=== PATIENT | female | born 1930 | race Caucasian/White ===

== ENCOUNTER 2020-10-14 10:29 | Inpatient (IN) | payer OTHER ==
[~2020-10-14] VITALS: Ht 157.5 cm; Wt 61.5 kg
[2020-10-14 10:52] VITALS: BP 126/64
[2020-10-14] MEDS ORDERED: PROAIR HFA8.5 GM INH (16:44)
[2020-10-14] MEDS ORDERED: TELMISARTAN-HC1 EAC2 PO (16:45)
[2020-10-14] MEDS ORDERED: ADVIL200 M3 PO (16:46)
[2020-10-14] MEDS ORDERED: ULTRAM50 MG PO (16:46)
[2020-10-14 18:36] LABS: CALCIUM 9.7 mg/dL (8.5-10.1); POTASSIUM 3.2 mmol/L (3.5-5.1)
[2020-10-14 18:49] VITALS: BP 159/74
[2020-10-14 19:43] VITALS: BP 134/67
[2020-10-14 20:05] VITALS: BP 136/61
[2020-10-15] VITALS (32 sets, daily range): BP systolic 79–167; BP diastolic 31–102
--- NOTE | 2020-10-15 04:22 | NUR ---
PT WAS ADMITTED TO THE UNIT FROM THE ER IN A STABLE CONDITION.PT'S BACK PAIN MANAGED WITH MED.ADMISSION HX EDUCATION AND ASSESSMENT COMPLETED.PT'S SODIUM AND POTASSIUM LOW,FINISHER OPERATOR ON DUTY NOTIFIED,ORDER NOTED.PT UP WITH ASSIST X1 TO BSC.PT STATED THAT SHE WOULD PREFER A BEDPAN.PT RESTING COMFORTABLY ON HER BED.CALL LIGHT WITHIN REACH.
[2020-10-15 13:37] LABS: HEMATOCRIT 31.9 % (37.0-47.0); HEMOGLOBIN 10.7 gm/dL (12.0-15.0); MCH 31.9 pg (26.0-34.0); MCHC 33.6 g/dL (28.0-37.0); MCV 94.8 fL (80.0-100.0); RBC 3.37 mil/uL (4.20-5.00); RDW 14.3 % (10.5-14.5); WBC 11.2 thou/uL (4.0-11.0)
[2020-10-15 13:42] LABS: CALCIUM 9.2 mg/dL (8.5-10.1); CREATININE 1.8 mg/dL (0.6-1.0); POTASSIUM 4.3 mmol/L (3.5-5.1)
--- NOTE | 2020-10-15 14:13 | NUR ---
Pt had large bloody stool with hyotension > COAL AND ASH SUPERVISOR activate > see flowsheet
--- NOTE | 2020-10-15 14:25 | NUR ---
Assumed care of pt. at 0700. Pt. was calm and cooperative but complained of pain in lower back. Pain medications given. Pt. complained that she needed to have a BM. TITLE SEARCHER Vashti reported large BM and request myself and the charge nurse Jane look at it. Noted large blood tinged BM. Collected stool sample. Vitals gathered. Decrease in BP and O2 Sat noted with vitals. Physician notified, orders given. Another set of vitals revealed second decrease in BP and O2 Sat. Rapid called. Dr. Boss ordered pt. be transfered to ICU. Pt. transfered with all belongings.
--- NOTE | 2020-10-15 15:48 | NUR ---
CONSULTED TO PLACE A IV FOR A PATIENT TRANSFERED TO ICU. DISCUSSED MIDLINE PLACEMENT WITH THE PATIENT - BENIFITS AND RISK OF DVT AND INFECTION AND SHE AGREED TO PLACEMENT. THE LEFT UPPER ARM BASILIC WAS WIDLEY PATENT. A #4F MIDLINE WAS PLACED PER HOSPITAL POLICY. LINE WAS TRIMMED TO 12CM AND ADVANCED WITHOUT DIFFICULTY.
[2020-10-15 17:06] LABS: HEMOGLOBIN 9.1 gm/dL (12.0-15.0); MCH 32.3 pg (26.0-34.0); MCHC 33.8 g/dL (28.0-37.0); MCV 95.3 fL (80.0-100.0); RBC 2.83 mil/uL (4.20-5.00); RDW 14.1 % (10.5-14.5); WBC 12.6 thou/uL (4.0-11.0)
--- NOTE | 2020-10-15 23:53 | NUR ---
ASSUMED CARE OF PATIENT AT 1900. ONE MODERATE STOOL, MAROON TINGED. INCONTINENT OF URINE. [address] FELICIANO, UNSUCCESSFUL. PUREWICK CATHETER PLACED. MORPHINE GIVEN TO CONTROL PAIN. NORA, PATIENTS DAUGHTER CALLED AT 2029. UPDATE GIVEN. SHE STATES SHE WILL BE HERE ARE 9 AM. NO OTHER CONCERNS AT THIS TIME. WILL CONTINUE TO MONITOR.
[2020-10-16] VITALS (29 sets, daily range): BP systolic 97–135; BP diastolic 34–67
[2020-10-16 04:33] LABS: APTT 22.5 Seconds (24.5-32.8); INR 1.1; PROTIME 10.9 Seconds (9.3-11.4)
[2020-10-16 04:36] LABS: HEMATOCRIT 26.1 % (37.0-47.0); HEMOGLOBIN 8.9 gm/dL (12.0-15.0); MCH 32.3 pg (26.0-34.0); MCHC 33.9 g/dL (28.0-37.0); MCV 95.1 fL (80.0-100.0); RBC 2.75 mil/uL (4.20-5.00); RDW 14.5 % (10.5-14.5); WBC 9.3 thou/uL (4.0-11.0)
[2020-10-16 04:46] LABS: ALBUMIN 2.4 g/dL (3.4-5.0); CALCIUM 8.4 mg/dL (8.5-10.1); CREATININE 1.1 mg/dL (0.6-1.0); PHOSPHORUS 2.3 mg/dL (2.5-4.9); POTASSIUM 3.8 mmol/L (3.5-5.1)
[2020-10-16 20:49] LABS: HEMATOCRIT 25.1 % (37.0-47.0); HEMOGLOBIN 8.5 gm/dL (12.0-15.0)
--- NOTE | 2020-10-16 21:02 | NUR ---
0730-SLEEPING,ALLOWED TO SLEEP.--VW 0800-G.I. LB HERE.--VW 0830-TO O.R. FOR EGD VIA BED FULLY MONITORED W G.I. CREW.--VW 1110-BACK FROM EGD.LYING ON BACK,MOUTH WIDE OPEN,RESP EVEN,REGULAR.GOOD COLOR,W&D.--VW 1200-DTR NORA AT ICU DOOR. BROTHER AMINATA HAD BEEN LISTED & SAW PT RICHI. VISITOR ON 10/15. EXPLAINED TO DTR THERE COULD ONLY BE 1 VISITOR FOR HOSPITILIZATION,SHE WAS OK W CURRENT RULES,STATING SHE UNDERSTOOD.--VW 1600-SON AMINATA AT BEDSIDE,UPDATED ON POC.--VW 1730-PUREWIC NOT IN PLACE,PT INCONT OF URINE.PARTIAL BATH,LINED CHANGE DONE. PT LOG ROLLED,HAS BEEN KEPT FLAT.TAKING LQDS W/O PROBLEMS (BED IN REV.T.SINAI).PUREWIC REPOSITIONED.--VW
[2020-10-17] VITALS (12 sets, daily range): BP systolic 114–153; BP diastolic 45–68
--- NOTE | 2020-10-17 00:41 | NUR ---
ASSUMED PT CARE AT 1900. VSS PT HOWEVER GETS SINUS TACHY WITH PAIN. PT RATES BACK PAIN AT 20/10. IV MORPHINE GIVEN. INITIAL ASSESSMENT DONE AND CHARTED. SPOKE TO LILLIAM JACKSON AT 2012 ABOUT PT STATUS CHANGE, GOT AN ORDER TO DOWNGRADE PT TO MST STATUS, SANDRA WHITTINGTON SUPERVISIOR CALLED TO GIVE ME A 2N ROOM NUMBER FOR PT. REPORT CALLED TO JAMIE MICHELE AT 0051. PT TO BE RANSFERED TO RM 208. PT'S SON WHITNEY CALLED AT 0054 LEFT A MESSAGE ABOUT PT ROOM CHANGE.
[2020-10-17 04:31] LABS: HEMATOCRIT 24.3 % (37.0-47.0); HEMOGLOBIN 8.2 gm/dL (12.0-15.0); MCH 32.6 pg (26.0-34.0); MCHC 33.7 g/dL (28.0-37.0); MCV 96.6 fL (80.0-100.0); RBC 2.51 mil/uL (4.20-5.00); RDW 14.3 % (10.5-14.5); WBC 7.4 thou/uL (4.0-11.0)
--- NOTE | 2020-10-17 04:35 | NUR ---
Pt was transfer from ICU. Pt complains of pain. Pain med administered to pt. Pain noted to be uncontrolled. Pt is stabloe ad laying in bed. Fall precaution in pt. Scheduled meds administered. Continue to monitor. No further needs at this time.
--- NOTE | 2020-10-17 15:19 | NUR ---
ASSUMED CARE AT SHIFT CHANGE, ASSESSMENT DOCUMENTED AND VSS. PATIENT C/O PAIN TO MID BACK AND LOWER BACK MEDICATED INDICATED. POST PROCEDURE VSS AND REPOSTIONED AND MEDICATED FOR PAIN. SON AT BEDSIDE AND WHITNEY WAS UPDATED WITH PATIENT PROGRESS. AND WILL CONTINUE WITH POC.
--- NOTE | 2020-10-17 17:22 | NUR ---
Met with patient and son at bedside. Patient resides in independent living at [facility]. Patient admits with lumbar compression fx. Patient rec procedure today. Therapy evals ordered but not evaled at this time. patient has a walker, wc at home. She reports independent with adls area captain. She rec meals at complex but no nursing or bath aide. Son Marcio reports inital plan to dc to his home with possible home health care. Family does NOT want snf. if rehab needed agreeable to 5N eval. Casemgt following.
--- NOTE | 2020-10-17 19:04 | NUR ---
ASSUMED CARE PT APPROX 1600. PT AWAKE AND ORIENTED.VSS. DENIES PAIN. O2 SATS WNL ON RA. PT TOLERATING DIET WELL. SON AT BEDSIDE THROUGHOUT SHIFT. PROTONIX GTT CONTINUES. PT REPOSITIONED TOLERATED. SON UPDATED ON POC. PT CURRENTLY SITTING UP IN BED FINISHING SOME DINNER. CONTINUING TO MONITOR AND FOLLOW POC. WILL PASS ON REPORT TO MIKA MICHELE.
--- NOTE | 2020-10-18 03:38 | NUR ---
PT CARE ASSUMED WITH PT IN BED WATCHING TV AT 1900.PT IS A/O X4 AND FORGETFUL.PT IS ON CLEAR LIQUID DIET.PT C/O PAIN AND PAIN MANAGED WITH HYDROCODONE AND MORPHINE WITH PARTIAL RELIEF.PT IS ON PROTONIX GTT.PT HAS SHAUNA SINGLE LUMEN MIDLINE.PT HAS EXTERNAL CATHETER IN PLACE.PT REFUSED REPOSITIONING AND C/O PAIN WHEN TRYING TO REPOSITION.WILL CONTINUE TO MONITOR PER POC
[2020-10-18 03:55] VITALS: BP 141/42
[2020-10-18 08:00] VITALS: BP 149/57
[2020-10-18 12:05] VITALS: BP 140/64
--- NOTE | 2020-10-18 12:39 | NUR ---
pt c/o upper abdominal pain today, given both prn pain medications so far without much relief. spoke with adelina from gi. she states to give the pt miralax and a suppository and see if having a bowel movement will help
--- NOTE | 2020-10-18 14:21 | NUR ---
Spoke with son Marcio plan for patient to dc to his home. he wants HH and no preferece for an agency. Address [id number] [id number]. Son reports approx 15 steps to bathroom in same room. They have a walker for home. Casemgt following. Therapies on hold and reordered, therapy to see in am.
[2020-10-18 16:13] VITALS: BP 154/74
[2020-10-18 19:55] VITALS: BP 130/52
--- NOTE | 2020-10-19 03:36 | NUR ---
Assumed pt care at 1900. Pt is alert and oriented, but is forgetful. No sign of distress noted in pt. Pt continues to verbalize pain. Pt is laying in bed resting comfortably. Vital sign stabale. Fall precaution in place. Scheduled meds administered to pt. No acute events overnight. Conitnue to monitor pt. No further needs at this time.
[2020-10-19 05:15] VITALS: BP 148/65
[2020-10-19 05:57] LABS: HEMATOCRIT 21.7 % (37.0-47.0); HEMOGLOBIN 7.5 gm/dL (12.0-15.0); MCH 32.9 pg (26.0-34.0); MCHC 34.4 g/dL (28.0-37.0); MCV 95.7 fL (80.0-100.0); RBC 2.27 mil/uL (4.20-5.00); RDW 14.4 % (10.5-14.5); WBC 7.7 thou/uL (4.0-11.0)
[2020-10-19 05:58] LABS: CALCIUM 8.4 mg/dL (8.5-10.1); CREATININE 0.7 mg/dL (0.6-1.0); POTASSIUM 3.1 mmol/L (3.5-5.1)
[2020-10-19 08:07] VITALS: BP 161/74
--- NOTE | 2020-10-19 11:20 | NUR ---
FAXED REFERRAL TO [facility] SPOKE WITH NATA IN INTAKE SHE RECEIVED REFERRAL AND WILL ACCEPT AT [place].
--- NOTE | 2020-10-19 13:13 | PATH ---
[facility] [address] [place] [address] PATHOLOGY RPT PROCEDURE Name: FABRICIO HARRIS Room #: 208-P ADM IN M.R.#: [id number] Admission: 10/14/20 Date of : [birth year] Discharge: Report #: [id number] Path Case #: [id number] [facility] Accession Number: [id number] . 01 Material submitted: . stomach - BIOPSY OF ANTRUM TO R/O H. PYLORI . 01 Clinical history: . BLEED, LUMBAR COMPRESSION FX . 02 Diagnosis: Antrum, biopsy: - Chronic inactive gastritis. - An H. pylori immunostain is negative (A1; appropriate control). (MAP/db; 10/19/20) LBQ 10/19/2020 1035 Local . 02 Electronically signed: . Jayme Newton MD, Pathologist NPI- [id number] . 01 Gross description: . The specimen is received in formalin, labeled "Fabricio Harris, BX of antrum" and consists of 2 fragments of pink tissue measuring 0.3 x 0.2 cm and 0.4 x 0.2 cm which are entirely submitted in A1. (SDY; 10/18/2020) SYU/SYU 10/18/2020 1729 Local . 02 Pathologist provided ICD-10: K29.50 . 02 CPT . 901023, [id number] Specimen Comment: A courtesy copy of this report has been sent to [phone], [phone] Specimen Comment: 1972 Specimen Comment: Report sent to / DR CUEVAS Performed at: [address], [place], [place] [id number] MD Kingsley King MD Phone: [phone] Performed at: [address] [id number] MD Elizabeth Holliday MD Phone: [phone]
--- NOTE | 2020-10-19 18:15 | NUR ---
Patient accepted to 5N. Sp with son Marcio family all in agreement with 5N. Updated 5N and phys
[2020-10-19 19:50] VITALS: BP 105/55
--- NOTE | 2020-10-20 03:43 | NUR ---
Assumed pt care at 1900. Pt is alert and oriented but forgetful. No sign of distress noted in pt. Denies pain for now. Pt is laying in bed, resting comfortably. Fall precaution in place. Assessment completed and documented. Scheduled meds administered to pt. NO acute events overnight. Continue to monitor. Pending discharge. No further needs at this time.
[2020-10-20 04:39] VITALS: BP 140/59
[2020-10-20 07:17] VITALS: BP 134/62
[2020-10-20 07:19] LABS: HEMOGLOBIN 7.6 gm/dL (12.0-15.0); MCH 32.9 pg (26.0-34.0); MCHC 34.4 g/dL (28.0-37.0); MCV 95.6 fL (80.0-100.0); RBC 2.3 mil/uL (4.20-5.00); RDW 14.4 % (10.5-14.5); WBC 5.8 thou/uL (4.0-11.0)
[2020-10-20 07:43] LABS: CALCIUM 8.6 mg/dL (8.5-10.1); CREATININE 0.6 mg/dL (0.6-1.0); MAGNESIUM 1.5 mg/dL (1.8-2.4); POTASSIUM 3.2 mmol/L (3.5-5.1)
[2020-10-20] MEDS ORDERED: COZAAR 50 MG TA50 M1 PO (08:13)
[2020-10-20] MEDS ORDERED: NORVASC5 MG PO (08:13)
[2020-10-20] MEDS ORDERED: CYCLOBENZAPRINE5 MG PO (08:13)
[2020-10-20] MEDS ORDERED: HYDROCODON-ACE1 EAC7 PO (08:14)
[2020-10-20] MEDS ORDERED: AMBIEN 5 MG TABL5 M1 PO (08:14)
[2020-10-20] MEDS ORDERED: LIDOPATCH1 EACH TRANSDERM (08:15)
[2020-10-20] MEDS ORDERED: PROTONIX40 M2 PO (08:15)
[2020-10-20] MEDS ORDERED: CARAFATE 11 GM/10 M1 PO (08:15)
[2020-10-20 11:17] VITALS: BP 149/74
[2020-10-20 15:14] VITALS: BP 153/73
--- NOTE | 2020-10-20 17:27 | NUR ---
ASSUMED CARE OF PT AT SHIFT. ASSESSMENT CHARTED. MEDS GIVEN PER JAN. PT A&OX4, C/O PAIN TREATED WITH PO MEDS WITH PARTIAL RELIEF. NO SIGNS OF BLEEDING, HGB IS STABLE. PLAN TO MOVE TO 5N THIS EVENING AFTER SHIFT CHANGE. WILL CONTINUE TO MONITOR AND FOLLOW POC.
== END 2020-10-20 18:30 | DRG 515 ==
LOC: ER 10:29 → ICU 18:29 → EROBS 18:29 → 2N 18:29 → 4S 19:34 → ICU 10-15 14:17 → 2N 10-17 01:14
PROVIDERS: Hospitalist; Internal Medicine; Nurse Practitioner Family; ADMIT Hospitalist; ATTEND Hospitalist
DX: M48.54XA Collapsed vertebra, not elsewhere classified, thoracic region, initial encounter for fracture (principal); K26.4 Chronic or unspecified duodenal ulcer with hemorrhage; K25.4 Chronic or unspecified gastric ulcer with hemorrhage; E87.1 Hypo-osmolality and hyponatremia; D62 Acute posthemorrhagic anemia; E46 Unspecified protein-calorie malnutrition; K80.20 Calculus of gallbladder without cholecystitis without obstruction; I10 Essential (primary) hypertension; M47.896 Other spondylosis, lumbar region; M12.88 Other specific arthropathies, not elsewhere classified, other specified site; M40.294 Other kyphosis, thoracic region; E87.6 Hypokalemia; K59.00 Constipation, unspecified; Z20.828 Contact with and (suspected) exposure to other viral communicable diseases; M85.88 Other specified disorders of bone density and structure, other site; I95.9 Hypotension, unspecified; Z68.24 Body mass index [BMI] 24.0-24.9, adult; Z79.899 Other long term (current) drug therapy; Z79.1 Long term (current) use of non-steroidal anti-inflammatories (NSAID)
CPT/HCPCS: 10081; 10195; 10196; 10203; 27000; 62110; 62900

== ENCOUNTER 2020-10-19 17:08 | Inpatient (IN) | payer OTHER ==
[~2020-10-19] VITALS: Ht 160 cm; Wt 64.4 kg
[~2020-10-19 17:08] MED LIST: ADVIL200 M3 PO; PROAIR HFA8.5 GM INH; TELMISARTAN-HC1 EAC2 PO; ULTRAM50 MG PO
[2020-10-20] MEDS ORDERED: COZAAR 50 MG TA50 M1 PO (08:13)
[2020-10-20] MEDS ORDERED: CYCLOBENZAPRINE5 MG PO (08:13)
[2020-10-20] MEDS ORDERED: NORVASC5 MG PO (08:13)
[2020-10-20] MEDS ORDERED: HYDROCODON-ACE1 EAC7 PO (08:14)
[2020-10-20] MEDS ORDERED: AMBIEN 5 MG TABL5 M1 PO (08:14)
[2020-10-20] MEDS ORDERED: CARAFATE 11 GM/10 M1 PO (08:15)
[2020-10-20] MEDS ORDERED: LIDOPATCH1 EACH TRANSDERM (08:15)
[2020-10-20] MEDS ORDERED: PROTONIX40 M2 PO (08:15)
--- NOTE | 2020-10-20 20:10 | NUR ---
ASSUMED CARE OF PT AT 1830 WHEN PT BROUGHT TO UNIT BY PREVIOUS UNIT NURSING STAFF. RECEIVED REPORT FROM NURSE PRIOR TO TRANSFER. PER PRIOR NURSE PT HAS BLADDER SCAN INDICATING 1000ML RETENTION, ORDERS OBTAINED BY PRIOR NURSE TO STRAIGHT CATH AND OBTAIN UA. ON ARRIVING TO UNIT, PT CRYING AND YELLING THAT HER STOMACH WAS HURTING, PT STATED THAT STRAIGHT CATH HAD NOT BEEN PLACED AND ATTEMTED X2 TO PLACE CATHETER IMMEDIATELY, BOTH ATTEMPTS UNSUCCESSFUL. PT ALLOWED TO REST AND WAS HAVING SOME INCONTINENT URINE OUTOUT AT THAT TIME, REPORTED THAT PAIN WAS BEGINING TO DECREASE. ONCOMING NURSE TO ATTEMPT CATHETER IF RESIDUAL CONTINUES. SON AT THE BEDSIDE AT THIS TIME. FALL FALL PRECAUTIONS IN PLACE AND NURSING WILL CONTINUE TO MONIOTR.
[2020-10-20 22:26] LABS: URINE BILIRUBIN NEGATIVE (Negative); URINE BLOOD TRACE (Negative); URINE CLARITY CLEAR; URINE COLOR YELLOW; URINE GLUCOSE-RANDOM* NEGATIVE (Negative); URINE KETONES NEGATIVE (Negative); URINE LEUKOCYTES-REFLEX NEGATIVE (Negative); URINE NITRITE-REFLEX NEGATIVE (Negative); URINE PROTEIN (DIPSTICK) NEGATIVE (Negative); URINE UROBILINOGEN 0.2 E.U./dl (0.2-1.0)
--- NOTE | 2020-10-21 03:50 | NUR ---
assumed care approx 1900 evening 10/20. pt lying in bed at change of shift c/o abdominal and back pain. pt restless, anxious, and somewhat confused. bladder scan showed >1000ml urine. cathed with lanza cath x1 with some difficulty however after tubing inserted long way urine began to flow. 1200cc clear, yellow urine obtained and ua sent to lab. pt also given pain pill as ordered. pt stated she was starting to feel somewhat better. pt given sleep med and sleeping off and on tonight. pt impulsive once so far tonight climbing out of bed and rearranging her bed sheets. pt now back in bed, lab here. call light in reach. bed alarm on. will continue to monitor.
[2020-10-21 04:52] LABS: HEMATOCRIT 22.6 % (37.0-47.0); HEMOGLOBIN 7.6 gm/dL (12.0-15.0); MCH 32.8 pg (26.0-34.0); MCHC 33.7 g/dL (28.0-37.0); MCV 97.3 fL (80.0-100.0); RBC 2.32 mil/uL (4.20-5.00); WBC 5.8 thou/uL (4.0-11.0)
[2020-10-21 06:54] LABS: FOLIC ACID 27.1 ng/mL (8.6-58.9)
[2020-10-21 08:00] VITALS: BP 150/83
[2020-10-21 09:21] LABS: CALCIUM 8.5 mg/dL (8.5-10.1); CREATININE 0.5 mg/dL (0.6-1.0); POTASSIUM 4.4 mmol/L (3.5-5.1)
[2020-10-21 09:23] VITALS: BP 147/71
--- NOTE | 2020-10-21 18:35 | NUR ---
Alert to person and place. Calm and cooperative without s/o distress. Breath sounds clear. Reg HR auscultated. Color pale pink with brisk capillary refill and palpable peripheral pulses. Clear yellow urine per lanza to dependent drainage. Active bowel sounds over soft rounded abdomen. Weak with therapy, placed back in bed. Took AM meds without difficulty with H2O. Coughed twice with 1100 med, speech therapy aware, changed to nectar thick fluids. Son here visiting, states both him and pt want pt. to be a DNR status. LILLIAM Ashby notified, status changed in computer. Son also concerned about pain management. Pt. states pain level is a 2-3. Tylenol given per PRN order. Pt. lying quietly in bed without s/o distress, some discomfort when turning and repositioning.
[2020-10-21 20:00] VITALS: BP 126/71
--- NOTE | 2020-10-22 02:16 | NUR ---
assumed care approx 1900 evening 10/21. pt lying in bed with head of bed elevated at change of shift. lanza to dd with clear, yellow urine to bag. pt forgetful and pleasantly confused at times. pt took hs meds with applesauce tolerating well. pt appears to be sleeping soundly with hourly rounding. bed alarm on and call light in reach. will continue to monitor.
--- NOTE | 2020-10-22 08:09 | NUR ---
ASSUMED CARE AT 0700. PATIENT IS ALERT TO PERSON. SOME CONFUSION. QUINONES'S, READERS' ADVISORY SERVICE LIBRARIAN ARE EQUAL. LUNGS ARE DEMINISHED. ABD IS SOFT WITH BSX4. PATIENT HAS FELICIANO TO DD, DRAINING VAL COLORED URINE. PATIENT HAS MIDLINE IN HER RIGHT UPPER ARM. FALL AND SAFETY PROTOCOLS IN PLACE. C/O BACK PAIN. MEDICATED WITH PRN PAIN MED. CONTINUES TO PROGRESS TOWARDS D/C GOALS. WILL CONTINUE TO MONITER.
[2020-10-22 19:49] VITALS: BP 139/76
--- NOTE | 2020-10-22 22:26 | NUR ---
PT ASSESSMENT COMPLETED AND VSS. MEDS GIVEN ORDERED AND WELL TOLERATED. FALL PRECAUTIONS IN PLACE. FELICIANO DRAINING MODERATE AMOUNT OF YELLOW URINE. C/O BACK PAIN. PRN MEDICATION HELPFUL. ASST WITH REPOSITION FOR COMFORT. RESTING WELL AT THIS TIME. WILL CONTINUE TO MONITOR FREQUENTLY.
[2020-10-23 08:16] VITALS: BP 126/57
[2020-10-23 19:35] VITALS: BP 149/77
--- NOTE | 2020-10-23 20:01 | NUR ---
ASSUMED CARE OF PT AT 0715. PT IS A&O TO SELF & SITUATION. IS FORGETFUL. REPORTS PAIN IN BACK THAT IS BEING MANAGED WITH MEDS & OTHER THERAPUETIC TECHNIQUES. IS ON ROOM AIR. IS STABLE. IS UP WITH 1 ASSIST, GB, WALKER TO CHAIR. FALL PRECAUTIONS & HOURLY ROUNDING CONTINUED THIS SHIFT. LABS & VITALS REVIEWED. PT IS CURRENTLY IN BED RESTING. CALL LIGHT WITHIN REACH. IS TURNED Q2H. FELICIANO IN PLACE. WILL CONTINUE TO MONITOR.
--- NOTE | 2020-10-24 00:36 | NUR ---
PT ASSESSMENT COMPLETED AND VSS. MEDS GIVEN ORDERED AND WELL TOLERATED. FALL PRECAUTIONS IN PLACE. HELPED PT WITH NECTOR THICK LIQUIDS AND MOUTH SPONGES. FORGETFUL. PRN PAIN MEDICATION HELPFUL FOR BACK PAIN AND SPASMS. PT VERY ANXIOUS AT TIMES DURING THE NIGHT. SAT WITH PT SEVERAL TIMES AND TALKED ABOUT HER LIFE. THIS SEEMED TO HELP PT RELAX. PROVIDED MUCH EMOTIONAL SUPPORT. SLEEPING AT THIS TIME. WILL CONTINUE TO MONITOR FREQUENTLY.
[2020-10-24 05:20] LABS: HEMATOCRIT 23.6 % (37.0-47.0); HEMOGLOBIN 7.8 gm/dL (12.0-15.0); MCV 96.9 fL (80.0-100.0); RBC 2.44 mil/uL (4.20-5.00); WBC 4.7 thou/uL (4.0-11.0)
[2020-10-24 05:36] LABS: CALCIUM 8.6 mg/dL (8.5-10.1); CREATININE 0.8 mg/dL (0.6-1.0); MAGNESIUM 1.7 mg/dL (1.8-2.4); POTASSIUM 3.2 mmol/L (3.5-5.1)
[2020-10-24 08:50] VITALS: BP 126/57
--- NOTE | 2020-10-24 09:14 | NUR ---
chart review. zenia tried to visit with renato at bedside, she was sitting in recliner chair. cm cont to wear face mask and shield during visit. she was complaining that her right side back hurt. intro to cm, dcp and team meeting. cm going to let her rest. noted in chart she lives a [facility]. has walker and possible wheel chair. had stair inside to get to the bathroom, approx 15. tamar cruz in past. will cont following as needed for dc needs.
--- NOTE | 2020-10-24 10:30 | NUR ---
ASSUMED CARE AT 0700. PT IS ALERT AND ORIENTATED X 2-3, FORGETFUL. WAS VERY ANXIOUS THIS MORNING DUE TO PAIN IN HER BACK. RATES PAIN 10/10. SHE WAS SENT FOR SWALLOW STUDY WITH VSS. RECEIVED CALL THAT "PT FEELS LIKE PASSING OUT", ANOTHER RN WENT DOWN TO RADIOLOGY TO ASSESS PT AND NOTED PT WAS MORE ANXIOUS DUE TO PAIN AND BP WAS STABLE WITH NO SIGNS OF HYPOTENSION. PT CAME BACK WITH ORDERS TO START THIN LIQUID. PT ATE 10% OF HER MEAL AND THROUGHT OUT THE DAY NOTED HAVING INTERMITTENT COUGHING WITH EATING. ST NOTIFIED, WILL NOT TRANSITION TO THIN LIQUID YET AND CONT WITH NECTAR THICK AND POSSIBLE FOR CXR TOMORROW IF OK WITH HOSPITALIST. PAIN IS BETTER MANAGED THROUGH OUT THE DAY. PARTICIPATING WITH THERAPY. WILL CONT TO MONITOR.
--- NOTE | 2020-10-24 16:46 | NUR ---
FAXED CLINICAL UPDATE TO [facility] SPOKE WITH DG IN ADM SHE RECEIVED UPDATE AND IF PT NEEDS HH AT DC THEY CAN ACCEPT.
--- NOTE | 2020-10-24 16:50 | NUR ---
FAXED CLINICAL UPDATE TO [facility] SPOKE WITH DG IN ADM IF PT NEEDS HH AT DC FROM REHAB THEY CAN ACCEPT.
[2020-10-24 19:26] VITALS: BP 153/76
--- NOTE | 2020-10-25 04:29 | NUR ---
assumed care approx 1900 evening 10/24. pt lying in bed with head of bed elevated. lanza to dd with yellow urine to bag. pt appears to be sleeping soundly waking up periodically thru night. pt given pain med as ordered. bed alarm on and call light in reach. will continue to monitor.
--- NOTE | 2020-10-25 07:51 | NUR ---
ASSUMED CARE AT 0700. PATIENT IS ALERT AND ORIENTED TO PERSON. PATIENT QUINONES'S, AND IS UP WITH ONE STAFF AND GAIT BELT WITH WALKER. PATIENT LUNGS ARE CLEAR AND DEMINISHED. ABD IS SOFT WITH BSX4. PATIENT HAS FELICIANO TO DD, DRAINING VAL COLORED URINE. PATIENT HAS S.L. IN LHIER LEFT UPPER ARM. IV SITE WITHOUT REDNESS OR SWELLING. FALL AND SAFETY PROTOCOLS IN PLACE. C/O PAIN IN HER BACK. PATIENT MEDICATED WITH PRN PAIN MED. CONTINUES TO PROGRESS SLOWLY TOWARDS D/C GOALS. WILL CONTINUE TO MONITER.
[2020-10-25 08:00] VITALS: BP 118/54
--- NOTE | 2020-10-25 12:57 | NUR ---
team meeting, reccomendation: dizzy with sitting with sit on edge of bed and standing. whole body temors. still has lanza cath rt retention. part to mod with dressing, supervison and min assist with transfer rt balance. 4ft min fww rt dizziness. [facility] ask son louis about stairs. needs assistance with bills and pills. dc 9th with [facility] ( pt, ot, st, nurseing), tamar cruz. needs 24hr assistance at home right now, hopefully she will be able to stay home allow.
--- NOTE | 2020-10-25 15:07 | NUR ---
AWAITING CXR TO BE COMPLETED. PATIENT WILL CONTINUE ON MODIFIED DIET OF MECHANICAL SOFT SOLIDS AND NECTAR THICK LIQUID UNTIL PULMONARY STATUS IS ASSESSED.
[2020-10-25 19:55] VITALS: BP 137/83
--- NOTE | 2020-10-26 01:54 | NUR ---
ASSUMED CARE OF PT AT 1900HRS. PT AOX2-3 AND LETS NEEDS BE KNOWN, DALL PRECAUTION IN PLACE. FELICIANO TO DD AND IS PATIENT. PT DENIED SIGNIFICANT PAIN, NAUSEA OR SOA. PT WAS ABLE TO TAKE ALL HS MEDS WHOLE WITH APPLESAUCE. PT WAS ABLE TO GET COMFORTABLE AND SLEEP PART OF THE SHIFT. VSS AND AND NO S/S OF ACUTE DISTRESS. WILL CONTINUE TO MONITOR.
--- NOTE | 2020-10-26 07:49 | NUR ---
ASSUMED CARE AT 0700. PATIENT IS ALERT AND ORIENTED X2, BUT FORGETFUL. PATIENT IS UP WITH ASSIST OF 1 STAFF AND GAIT BELT. LUNGS ARE CLEAR AND DEMINISHED. ABD IS SOFT WITH BSX4. PATIENT HAD BM TODAY. PATIENT HAS FELICIANO TO DD, DRAINING VAL COLORED URINE. PATIENT HAS MIDLINE IV ACCESS. FALL AND SAFETY PROTOCOLS IN PLACE. DENIES PAIN AT THIS TIME. CONTINUES TO PROGRESS SLOWLY TOWARDS D/C GOALS. WILL CONTINUE TO MONITER.
[2020-10-26 08:00] VITALS: BP 113/81
--- NOTE | 2020-10-26 12:57 | NUR ---
Nutrition: RD starting calorie count. Chronic poor appetite-severe malnutrition. RECOMMEND consider appetite stimulant and order daily weights.
[2020-10-26 20:04] VITALS: BP 139/60
--- NOTE | 2020-10-26 23:31 | NUR ---
PT ASSESSMENT COMPLETED AND VSS. MEDS GIVEN ORDERED AND WELL TOLERATED. FALL PRECAUTIONS IN PLACE. ASST WITH FREQUENT REPOSITION FOR COMFORT. FELICIANO DRAINING MODERATE AMOUNT OF YELLOW URINE. ENJOYED SNACK AND NECTOR THICK WATER BEFORE BED. SLEEP MEDICATION HELPFUL. RESTING WELL. WILL CONTINUE TO MONTIOR FREQUENTLY. TYLENOL HELPFUL FOR BACK PAIN.
[2020-10-27 06:06] LABS: HEMATOCRIT 22.5 % (37.0-47.0); HEMOGLOBIN 7.5 gm/dL (12.0-15.0); MCH 31.7 pg (26.0-34.0); MCHC 33.2 g/dL (28.0-37.0); MCV 95.5 fL (80.0-100.0); RBC 2.36 mil/uL (4.20-5.00); RDW 14.8 % (10.5-14.5); WBC 4.1 thou/uL (4.0-11.0)
[2020-10-27 06:55] LABS: CREATININE 0.7 mg/dL (0.6-1.0); MAGNESIUM 1.9 mg/dL (1.8-2.4)
[2020-10-27 08:00] VITALS: BP 155/81
--- NOTE | 2020-10-27 15:23 | NUR ---
ASSUMED CARES AT 0700. PT AWAKE, ORIENTED TO PERSON AND SITUATION ONLY, FORGETFUL AND CONFUSED. C/O BACK PAIN, PAIN MEDICATION ADMINISTERED NEEDED, LIDOCAINE PATCH PLACED ON LOWER BACK. VITALS REMAIN STABLE. LEFT UPPER ARM MIDLINE REMAIN INTACT AND PATENT. FELICIANO REMAIN INTACT AND PATENT, URINE IS YELLOW AND CLEAR WITH NO FOUL ODOR. PT UP WITH 1 MIN ASSIST, GB AND WALKER. Q1H VISUAL CHECKS. CALL LIGHT WITHIN REACH. FALL PRECAUTIONS IN PLACE
[2020-10-27 20:48] VITALS: BP 151/75
--- NOTE | 2020-10-28 02:34 | NUR ---
ASSUMED CARE APPROX 1900 EVENING 10/26. PT LYING IN BED WITH HEAD OF BED ELEVATED AT CHANGE OF SHIFT. PT AWAKE AND ORIENTED, FORGETFUL AT TIMES. FELICIANO TO DD WITH YELLOW URINE TO BAG. PT TOOK HS MEDS WITH APPLESAUCE TOLERATING WELL. PT APPEARS TO BE SLEEPING SOUNDLY WITH HOURLY ROUNDING. BED ALARM ON AND CALL LIGHT IN REACH. WILL CONTINUE TO MONITOR.
[2020-10-28 07:30] VITALS: BP 158/87
--- NOTE | 2020-10-28 09:21 | PLAN ---
[facility] [place] [address] REHAB UNIT PLAN OF CARE Name: FABRICIO HARRIS Room #: 512-P ADM IN M.R.#: [id number] Admission: 10/20/20 Attend Phys: Solo Mejia MD Discharge: Date of : [birth year] Report #: [id number] THIS REPORT FOR: cc: Winston Staley MD,Winston Mejia,Solo Brooke MD ~ CC: Solo Staley DATE OF SERVICE: 10/22/2020 PROGRESS NOTE/OVERALL PLAN OF CARE SUBJECTIVE: The patient is seen back today in followup. She is in no distress. Last recorded temperature 36.9, pulse 103, respirations 18, blood pressure 128/58. The patient was seen earlier. She is receiving p.r.n. medications for back pain. She has been working in therapies with transfers min assist, gait min assist 5 feet, handheld. She is max assist for lower body dressing. She is on a mechanical soft, nectar-thickened liquid diet. ASSESSMENT: An 89-year-old female with the following problem list: 1. T9 burst compression fracture, status post kyphoplasty on 10/17/2020. 2. Medical complexity with generalized debilitation. 3. Gastric ulcer, status post epinephrine with cautery on 10/16/2020. 4. Acute blood loss anemia. 5. Orthostatic hypotension/orthostatic precautions. 6. Hypertension. 7. Lumbar degenerative disk disease. 8. Hypokalemia. 9. Protein-calorie malnutrition. PLAN: The overall plan of care is based on the preadmission screen and information garnered from therapy assessments. 1. Estimated length of stay is probably at least 10 days, likely a little longer depending upon progress. 2. Medical prognosis is reasonably good. 3. Anticipated interventions include interdisciplinary acute inpatient rehabilitation program. 4. Anticipated functional outcomes would be for the patient to improve as far as her overall functional mobility and ADLs. She also has swallowing issues with speech therapy involved. Also working on improving her overall back pain. 5. Discharge destination would be back to the home setting where she lives in an apartment alone. She may need increased assistance initially. 6. Expected therapy by discipline includes PT, OT, and Speech 1 hour per day each 5 days a week throughout the duration of the acute inpatient rehabilitation stay. [address] [address] REHAB UNIT PLAN OF CARE Name: FABRICIO HARRIS Room #: 512-P [facility] IN .R.#: [id number] Admission: 10/20/20 Attend Phys: Solo Mejia MD Discharge: Date of : [birth year] Report #: [id number] The patient's prognosis for significant practical improvement within a reasonable period of time appears good. Given the patient's complex medical condition and risk of further medical complications, rehabilitation services could not be safely provided at a lower level of care such as a [facility] facility. <ELECTRONICALLY SIGNED> By: Solo Mejia MD 10/28/20 0921 1220 [id number] Solo Mejia MD /concha
[2020-10-28 11:33] LABS: HEMATOCRIT 22.4 % (37.0-47.0); HEMOGLOBIN 7.3 gm/dL (12.0-15.0); MCH 31.1 pg (26.0-34.0); MCHC 32.5 g/dL (28.0-37.0); MCV 95.7 fL (80.0-100.0); RBC 2.35 mil/uL (4.20-5.00); RDW 15.1 % (10.5-14.5); WBC 4.7 thou/uL (4.0-11.0)
--- NOTE | 2020-10-28 11:52 | NUR ---
Nutrition: day 2 calorie count pt consumed 300 kcals, 10 gm protein or 18% kcal needs, 15% protein needs. Appetite/intake worsening. Severe malnutrition. Appetite stimulant started. If no positive improvement in po within 24-48 hrs, rec consider supplemental PPN or enteral feeds for watermelon harvesting supervisor nutrition assist if within POC.
[2020-10-28 11:55] LABS: CALCIUM 9.2 mg/dL (8.5-10.1); CREATININE 0.8 mg/dL (0.6-1.0); POTASSIUM 3.9 mmol/L (3.5-5.1)
[2020-10-28 12:15] LABS: URINE BILIRUBIN NEGATIVE (Negative); URINE BLOOD TRACE (Negative); URINE CLARITY CLOUDY; URINE COLOR YELLOW; URINE GLUCOSE-RANDOM* NEGATIVE (Negative); URINE KETONES NEGATIVE (Negative); URINE PROTEIN (DIPSTICK) 1+ (Negative); URINE UROBILINOGEN 0.2 E.U./dl (0.2-1.0)
[2020-10-28 12:16] LABS: URINE LEUKOCYTES-REFLEX 2+ (Negative); URINE NITRITE-REFLEX POSITIVE (Negative)
[2020-10-28 12:24] LABS: SQUAMOUS 4-10 Moderate /LPF (0-3); URINE WBC-REFLEX >25 Many /HPF (0-5)
[2020-10-28 12:25] LABS: AMORPHOUS URATES Few /LPF (None Seen); BACTERIA-REFLEX >30 Many /HPF (None Seen); CASTS None Seen /LPF (None Seen); URINE RBC 0-2 Rare /HPF (0-2)
--- NOTE | 2020-10-28 14:37 | NUR ---
ASSUMED CARES AT 0700. PT ORIENTED TO PERSON AND SITUATION, FORGETFUL AND CONFUSED THIS AM. PT STATED THAT SHE DIDN'T SLEEP WELL LAST NIGHT. HAD TREMORS/ SHAKES THIS AM WHEN WORKING WITH BOTH occupational and physical THERAPIES. LABS ORDERED AND UA, UA POSITIVE, PT STARTED ON ANTIBIOTICS. PT SEEMED VERY ANXIOUS WELL, PAIN MEDICATION ADMINISTERED R/T NOTED TREND OF INCREASED ANXIETY WITH PAIN. PT MORE RELAXED, ENGAGING AND MORE AWAKE WHEN VISITING WITH SON THIS AFTERNOON. FELICIANO REMAINS INTACT AND PATENT, YELLOW CLEAR URINE. PT IS NOW ON THIN LIQUIDS AND TOLERATES WELL, ENCOURAGED TO DRINK FLUIDS. CONTINUES TO HAVE POOR APPETITE, EATING LESS THAN 25% PER MEAL. UP WITH 1 MIN ASSIST, GB AND WALKER. Q1H VISUAL CHECKS. CALL LIGHT WITHIN REACH. FALL PRECAUTIONS IN PLACE.
[2020-10-28 20:00] VITALS: BP 137/69
--- NOTE | 2020-10-29 02:44 | NUR ---
assumed care approx 1900 evening 10/28. pt lying in bed with head of bed elevated at change of shift. lanza to dd with clear, yellow urine to bag. pt took hs meds with applesauce tolerating well. pt appears to be sleeping soundly. bed alarm on and call light in reach. will continue to monitor.
[2020-10-29 04:26] LABS: % SATURATION 4 % (20-39); IRON 16 ug/dL (50-170); TIBC 363 ug/dL (250-450)
[2020-10-29 07:31] VITALS: BP 159/77
--- NOTE | 2020-10-29 07:48 | NUR ---
ASSUMED CARE AT 0700. PATIENT IS ALERT AND ORIENTED X2. PATIENT QUINONES'S. PATIENT LUNGS ARE CLEAR AND DEMINISHED. ABD IS SOFT WITH BSX4. PATIENT HAS FELICIANO TO DD, DRAINING VAL COLORED URINE. FALL AND SAFETY PROTOCOLS IN PLACE. DENIES PAIN AT THIS TIME. CONTINUES TO PROGRESS SLOWLY TOWARDS D/C GOALS. PATIENT HAS MIDLINE IN THE LEFT UPPER ARM. WILL CONTINUE TO MONITER.
[2020-10-29 19:39] VITALS: BP 137/57
--- NOTE | 2020-10-29 23:43 | NUR ---
PT ASSESSMENT COMPLETED AND VSS. MEDS GIVEN ORDERED AND WELL TOLERATED. FALL PRECAUTIONS IN PLACE. FELICIANO DRAINING LARGE AMOUNT OF YELLOW URINE. ASST WITH FREQUENT REPOSITION FOR COMFORT. SLEEP MEDICATION HELPFUL. PT SLEEPING WELL AT THIS TIME. WILL CONTINUE TO MONITOR FREQUENTLY.
[2020-10-30 08:10] VITALS: BP 150/80
--- NOTE | 2020-10-30 09:46 | NUR ---
ASSUMED CARE AT 0700. PATIENT IS ALERT AND ORIENTED TO SELF. 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 LUNGS ARE DEMINISHED. ABD IS SOFT WITH BSX4. PATIENT HAS FELICIANO TO DD, DRAINING VAL COLORED URINE. UP IN THE CHAIR FOR BREAKFAST. FALL AND SAFETY PROTOCOLS IN PLACE. C/O GENERALIZED PAIN AND PAIN IN HER BACK. MEDICATED WITH PRN PAIN MED. CONTINUES TO C/O GENERAL DISCOMFORT ALL OVER RELATED TO POSITION. MIDLINE INTACT IN PATIENTS UPPER LEFT ARM. WILL CONTINUE TO MONITER.
--- NOTE | 2020-10-30 15:22 | HC ---
[facility] [place] [address] CONSULTATION Name: FABRICIO HARRIS Room #: 512-P [facility] IN M.R.#: [id number] Admission: 10/20/20 Attend Phys: Solo Mejia MD Discharge: Date of : [birth year] Report #: [id number] THIS REPORT FOR: cc: Winston Staley MD, Scott H. MD Deutch,Rich Oquendo. PhD ~ DATE OF SERVICE: 10/22/2020 NEUROBEHAVIORAL STATUS EXAM AGE: 89. ATTENDING PHYSICIAN: Solo Mejia MD DIGITAL ACCOUNT DIRECTOR: Rich Mcmullen, PhD CLINICAL PRESENTATION: The patient is an 89-year-old female admitted to the [facility] after a fall in her home. She experienced acute back pain and was found to have a T12 acute burst compression fracture. The patient underwent a kyphoplasty on 10/17/2020. The patient is reported to have had acute blood loss anemia and was admitted to the rehabilitation unit for a comprehensive inpatient rehabilitation program. Her assessment on the rehab unit was a T9 burst compression fracture, status post kyphoplasty; medical complexity with generalized debility; gastric ulcer, status post epinephrine and cauterization on 10/16/2020; acute blood loss anemia; orthostatic precautions; hypertension; lumbar DJD; hypokalemia, resolved; PCM, and hypertension. A complete description of her medical condition and history can be found in her medical records. Neuropsychological consultation was requested to provide assistance in the assessment of cognitive and emotional status and to provide recommendations and services. Prior to this most recent admission, she was residing in an independent living apartment at the [facility]. She had moved into independent living following the of her in November. She indicated that she discontinued driving, but was independent with managing medications and bill payment. Following her discharge from rehabilitation, her son is planning on her moving in with him. He is a nurse and provides her with excellent support. The patient has 4 children. Two children have . She is a high school graduate with 2 years of college. TECHNIQUES UTILIZED: Clinical interview, review of medical records, staff consultation and behavioral observation, mini mental status exam 2 standard version, clock drawing and verbal fluency assessment. [facility] [address] [place] [address] CONSULTATION Name: FABRICIO HARRIS Room #: 512-P [facility] IN M.R.#: [id number] Admission: 10/20/20 Attend Phys: Solo Mejia MD Discharge: Date of : [birth year] Report #: [id number] EXAMINATION FINDINGS: The patient was alert and cooperative with the assessment. She had difficulty in describing aspects of her hospitalization and reason for treatment. Increased anxiety and frustration with her lingering recovery from the medical procedure is described. She also reports difficulty with appetite, memory and word finding, but does not sleep or feelings of depression. Her performance on the MMSE 2 brief version was extremely low with a raw score of 7/16. She was 3/3 for initial registration, 2/5 for orientation to time and 2/[address]. She was 0/3 for immediate recall of 3 items after a brief time delay and distraction. Performance on the MMSE 2 standard version was extremely low with a raw score of 18/30, which is a T score of 17 and percentile rank of less than 1. She was 3/5 for serial sevens, 2/2 for naming, 1/1 for repetition, 3/3 for auditory comprehension. She could read and follow a single command and write a sentence. The patient was unable to accurately copy a simple geometric design. The patient also had difficulty with clock drawing. Letter fluency was in the low average range at the 16th percentile. Category fluency was in the borderline range with a T score of 30 and percentile rank at 2. Overall, total fluency was extremely low with a T score of 28 and percentile rank of 1. The patient is presenting with [id number] deficits in cognition. Impairment is noted with immediate recall, visual spatial construction, and thought organization along with aspects of executive functioning. Anxiety is also likely. DIAGNOSTIC IMPRESSION: Neurocognitive disorder -- extent to b e determined, likely in the moderate range. Adjustment disorder with anxious mood. RECOMMENDATIONS: The patient will require increased assistance in the management of medication, finances and nutrition. The use of relaxation techniques along with verbal praise and complements about participation in therapies and improvement that she might be noticing in her ability to manage pain more successfully will also be of benefit. Additionally, medication with sedating features may be contributing to variability in her cognition. [address] [address] CONSULTATION Name: FABRICIO HARRIS Room #: 512-P [facility] IN M.R.#: [id number] Admission: 10/20/20 Attend Phys: Solo Mejia MD Discharge: Date of : [birth year] Report #: [id number] Thank you very much for allowing me to provide a consultation on this patient. <ELECTRONICALLY SIGNED> By: Rich Mcmullen, PhD 10/30/20 1522 [id number] Rich Mcmullen, PhD /nt
[2020-10-30 19:50] VITALS: BP 142/74
--- NOTE | 2020-10-31 00:14 | NUR ---
PT ALERT AND ORIENTED X 2. FELICIANO PATENT DRAINING YELLOW URINE. LEFT MIDLINE IV INTACT. PT TOOK HS MEDS IN APPLESAUCE WITHOUT DIFFICULTY. PT DENIES PAIN OR DISCOMFORT. BED ALARM ON FOR SAFETY. PT APPEARS TO BE SLEEPING ON HOURLY ROUNDS.
[2020-10-31 07:40] VITALS: BP 138/83
--- NOTE | 2020-10-31 17:44 | NUR ---
ASSUMED CARE AT 0700. PT IS ALERT AND ORIENTATED BUT DOES GET VERY ANXIOUS AND HAS SIGNS OF TREMORS WHEN GETTING UP. PT COMPLAINED OF SOME LOWER BACK PAIN AND RELIEF WITH PO TRAMADOL AND HEATING PAD. PT FEELS USELESS AND DEPRESSED AND TOLD STAFF, "I WANT TO ", "I CANT DO THERAPY TODAY AND FEELING DIZZY". DR TEMPLE CONSULTED AND SAW PT, NO NEW ORDERS. FELICIANO REMOVED TODAY, PT ENCOURAGED TO INCREASE PO INTAKE, WILL BLADDER SCAN AFTER DINNER. NO MORE TREMORS NOTED. PT IS STILL CONSTIPATED AND GIVEN STOOL REGIMEN. FARHAD VYAS WITH GI NOTIFIED. PARTICIPATING IN THERAPY WITH RAMIRO ROMAN. WILL CONT TO MONITOR,
[2020-10-31 20:47] VITALS: BP 127/63
--- NOTE | 2020-10-31 22:00 | NUR ---
DENIES PAIN, DENIES URGE TO VOID, BLADDER SCAN SHOWS 34. TURNED TO SIDE, LIDODERM PATCH REMOVED, APPRECIATES MIRALAX BECAUSE IT HAS BEEN A LONG TIME SINCE SHE HAS HAD BM. SHAUNA MIDLINE INTACT
--- NOTE | 2020-11-01 04:00 | NUR ---
BARELY MOIST BRIEF REMOVED AT THIS TIME. BLADDER SCAN SHOWS 193, REPORTS NO URGE TO VOID
[2020-11-01 04:56] LABS: HEMATOCRIT 23.4 % (37.0-47.0); HEMOGLOBIN 7.6 gm/dL (12.0-15.0); MCH 30.5 pg (26.0-34.0); MCHC 32.7 g/dL (28.0-37.0); MCV 93.3 fL (80.0-100.0); RBC 2.5 mil/uL (4.20-5.00); RDW 15.4 % (10.5-14.5); WBC 3.6 thou/uL (4.0-11.0)
[2020-11-01 07:36] VITALS: BP 141/78
[2020-11-01 10:46] LABS: CREATININE 0.8 mg/dL (0.6-1.0); POTASSIUM 3.9 mmol/L (3.5-5.1)
[2020-11-01 12:57] LABS: CALCIUM 8.5 mg/dL (8.5-10.1)
--- NOTE | 2020-11-01 13:16 | NUR ---
team meeting, reccomendation: diet, mech soft with thin liquid. dc 9th to son home initial. 24 hr assistance, tamar ( pt, ot, st, nursing). getting kub rt constipation. son/family to assist with bills and pills.
--- NOTE | 2020-11-01 19:33 | NUR ---
ASSUMED CARES AT 0700. PT AWAKE, ORIENTED *3 AND FORGETFUL. C/O BACK PAIN, PAIN MEDICATION ADMINISTERED NEEDED. VITALS REMAIN STABLE. PT CONSTIPATED, LAST REPORTED BM 10/27, ABDOMEN FIRM AND DISTENDED, BOWEL PROGRAM INITIATED. PT HAD *2 SMALL HARD STOOLS. KUB SHOWED LARGE AMOUNT OF STOOL. NO VOIDS SINCE FELICIANO REMOVAL, BLADDER SCAN 460CC THIS EVENING, PT UNABLE TO VOID EVEN AFTER SITTING ON THE TOILET FOR >5MINS. FELICIANO PLACED PER ORDER, 450CC EMPTIED FROM FELICIANO. PT PARTICIPATING IN THERAPY, STATED THAT SHE WANTS TO DO MORE ACTIVITY SO SHE CAN MOVE HER BOWELS AND VOID BETTER. MIDLINE ON LEFT FOREARM INTACT AND PATENT. PT UP WITH 1 MIN ASSIST, GB AND WALKER. Q1H VISUAL CHECKS. CALL LIGHT WITHIN REACH. FALL PRECAUTIONS IN PLACE
[2020-11-01 20:21] VITALS: BP 133/62
--- NOTE | 2020-11-02 00:42 | NUR ---
PT ASSESSMENT COMPLETED AND VSS. MEDS GIVEN ORDERED AND WELL TOLERATED. FALL PRECAUTIONS IN PLACE. SLEEP MEDICATION HELPFUL. ASST WITH REPOSITION FOR COMFORT. PT HAD A LARGE DAVIS HARD BM. GAVE PT STOOL SOFTNER AND MIRLAX ORDERED. FELICIANO DRAINING MODERATE AMOUNT OF LIGHT YELLOW URINE. SLEEPING WELL AT THIS TIME. WILL CONTINUE TO MONITOR FREQUENTLY.
[2020-11-02 07:31] VITALS: BP 150/79
[2020-11-02 08:43] VITALS: BP 150/79
[2020-11-02] MEDS ORDERED: TYLENOL EXTRA500 MG PO (08:57)
[2020-11-02] MEDS ORDERED: LIDOPATCH1 EACH TRANSDERM (08:57)
[2020-11-02] MEDS ORDERED: FERROUS SU220 MG/52 PO (08:57)
[2020-11-02] MEDS ORDERED: COZAAR 50 MG TA50 M1 PO (08:57)
[2020-11-02] MEDS ORDERED: CARAFATE 11 GM/10 M1 PO (08:57)
[2020-11-02] MEDS ORDERED: COLACE100 MG PO (08:57)
[2020-11-02] MEDS ORDERED: REMERON 30 MG T30 M1 PO (08:57)
[2020-11-02] MEDS ORDERED: VITAMIN D325 MC1 PO (08:57)
[2020-11-02] MEDS ORDERED: PROTONIX40 M2 PO (08:57)
[2020-11-02] MEDS ORDERED: CEFUROXIME250 MG PO (08:59)
[2020-11-02] MEDS ORDERED: FLOMAX0.4 MG PO (09:01)
--- NOTE | 2020-11-02 11:32 | NUR ---
ASSUMED CARE AT 0700. PT IS ALERT AND ORIENTATED TO SELF AND PLACE. PT REPORTED SLEPT FAIRLY WELL. DENIES ANY PAIN. SHE IS EXCITED ABOUT DISCHARGE PLANNING TODAY WITH SON, JEFF. FELICIANO INTACT AND DRAINING WELL. HAD A BM TODAY WITH NO VISIBLE BLOOD. APPETITE FAIR. UP WITH ASSIST TO BATHROOM. PARTICIPATES WITH THERAPIES MUCH TOLERATE. PLAN FOR DC TODAY WITH SON. WILL WAIT TILL SON COMES AND DO DISCHARGE EDUCATION.
--- NOTE | 2020-11-02 14:48 | NUR ---
PT DISCHARGING TODAY TO HOME WITH [facility] FAXED DC ORDERS/SUMMARY SPOKE WITH RENE IN INTAKE THEY RECEIVED ORDERS AND WILL ARRANGE VISITS WITH PT.
== END 2020-11-02 15:01 | disposition home health service (06) | DRG 542 ==
PROVIDERS: Internal Medicine; Nurse Practitioner; Nurse Practitioner Family; ADMIT Physical Medicine & Rehabilitation; ATTEND Physical Medicine & Rehabilitation
DX: M48.54XA Collapsed vertebra, not elsewhere classified, thoracic region, initial encounter for fracture (principal); K25.4 Chronic or unspecified gastric ulcer with hemorrhage; K26.4 Chronic or unspecified duodenal ulcer with hemorrhage; D62 Acute posthemorrhagic anemia; N39.0 Urinary tract infection, site not specified; E46 Unspecified protein-calorie malnutrition; R53.81 Other malaise; I10 Essential (primary) hypertension; R13.10 Dysphagia, unspecified; I95.1 Orthostatic hypotension; E87.6 Hypokalemia; M51.36 Other intervertebral disc degeneration, lumbar region; R41.9 Unspecified symptoms and signs involving cognitive functions and awareness; F43.20 Adjustment disorder, unspecified; Z60.2 Problems related to living alone; M47.896 Other spondylosis, lumbar region; E83.42 Hypomagnesemia; R33.9 Retention of urine, unspecified; M19.90 Unspecified osteoarthritis, unspecified site; K80.20 Calculus of gallbladder without cholecystitis without obstruction; F41.9 Anxiety disorder, unspecified; K59.00 Constipation, unspecified; Z68.25 Body mass index [BMI] 25.0-25.9, adult
CPT/HCPCS: 10112